=== PATIENT | male | born 1980 | race Two or more races ===

== ENCOUNTER → 2019-03-02 | Outpatient (CLI) | payer MEDICAID | END | disposition home or self-care (01) | LOC: Rad HDHVI 11:00 | PROVIDERS: ATTEND Internal Medicine Cardiovascular Disease | DX: I07.1 Rheumatic tricuspid insufficiency (principal); R00.2 Palpitations; I25.10 Atherosclerotic heart disease of native coronary artery without angina pectoris | CPT/HCPCS: 93306 ==

== ENCOUNTER 2019-03-29 11:51 | Emergency (ER) | payer MEDICAID ==
[~2019-03-29] VITALS: Ht 188 cm; Wt 140.6 kg
[2019-03-29 13:34] VITALS: BP 154/90
[2019-03-29 14:57] LABS: Basophils # (auto) 0 uL; Eosinophils # (auto) 0 uL; Eosinophils % (auto) 0.6 % (0.0-7.0); Lymphocytes # (auto) 0.8 uL; Monocytes # (auto) 0.4 uL; Nucleated Red Blood Cells % 0.3 %
[2019-03-29 15:00] LABS: Basophils % (auto) 0.4 % (0.0-2.0); Hematocrit 49.6 % (41.0-53.0); Hemoglobin 16.4 g/dL (13.5-17.5); Lymphocytes % (auto) 17.6 % (10.0-50.0); Mean Corpuscular Hemoglobin 25.6 pg (28.0-32.0); Mean Corpuscular Hgb Conc. 33.1 g/dL (32.0-36.0); Mean Corpuscular Volume 77.3 fL (80.0-100.0); Monocytes % (auto) 8.1 % (0.0-12.0); Neutrophils # (auto) 3.5 uL; Neutrophils % (auto) 73.3 % (37.0-80.0); Platelet Count (auto) 198 10^3/uL (140-450); Red Blood Cells 6.41 10^6/uL (4.5-5.90); Red Cell Distribution Width 15.8 % (11.8-14.3); White Blood Cell 4.8 10^3/uL (4.4-10.8)
[2019-03-29 15:05] LABS: Alcohol, Urine < 3.0 mg/dL (0-5); Amphetamine Screen, Urine NEGATIVE (NEGATIVE); Barbiturate Scree,Urine NEGATIVE (NEGATIVE); Benzodiazephine Screen, Urine NEGATIVE (NEGATIVE); Cannabinoid Screen, Urine NEGATIVE (NEGATIVE); Cocaine Screen, Urine NEGATIVE (NEGATIVE); Opiate Scree,Urine NEGATIVE (NEGATIVE); Phencyclidine Screen, Urine NEGATIVE (NEGATIVE)
[2019-03-29 15:14] LABS: Urine Bacteria FEW /hpf (None Seen); Urine Blood Negative /uL (Negative); Urine Specific Gravity 1.015 (1.001-1.035); Urine WBC 1 /hpf (0 - 3)
[2019-03-29 15:18] LABS: Albumin 3.8 g/dL (3.4-5.0); Anion Gap 7 (5-15); BUN/Creatinine Ratio 9.7; Blood Urea Nitrogen 12 mg/dL (7-18); Calcium 9.2 mg/dL (8.5-10.1); Carbon Dioxide 26 mmol/L (21-32); Chloride 110 mmol/L (98-107); GFR African American 85 mL/min; GFR Non-African American 70 mL/min; Glucose 91 mg/dL (74-106); Potassium 4.4 mmol/L (3.5-5.1); Sodium 143 mmol/L (136-145)
[2019-03-29 15:24] LABS: Alanine Aminotransferase 48 U/L (16-61); Alkaline Phosphatase 88 U/L (45-117); Aspartate Aminotransferase 21 U/L (15-37); Bilirubin, Total 0.3 mg/dL (0.2-1.0); Total Protein 7.7 g/dL (6.4-8.2)
== END 2019-03-29 15:40 | disposition home or self-care (01) ==
LOC: ER 11:51
DX: R00.2 Palpitations (principal); M79.10 Myalgia, unspecified site; R07.89 Other chest pain
CPT/HCPCS: 36415; 71046; 80053; 80307; 81001; 84484; 85025; 93005

== ENCOUNTER → 2019-04-13 | Outpatient (CLI) | payer MEDICAID ==
[~2019-04-13] MED LIST: ASP81EC PO; ATOR1TAB PO; BENA20TA14 PO; CHOL100029 PO; DIPH2.5T73 PO; FLUT0.05 NAS; METF-370 PO; OMEP20TA PO
[2019-04-13 09:58] VITALS: BP 150/93
[2019-04-13 10:08] VITALS: BP 152/86
--- NOTE | 2019-04-13 10:08 | NUR ---
Pre-Op Discharge Summary: See e-MAR for any medications given for this visit. Pre-op orders received and carried out per MD of EKG, LABS and chest xrays. Patient given a copy of EKG with instructions to go to [facility] out patient for further follow up care. NOTES EKG BY AMADOR AMBRIZ AND RESULTS REVIEWED BY JEREMIAS DEGROOT.
[2019-04-13 12:07] LABS: Basophils # (auto) 0 uL; Eosinophils # (auto) 0.1 uL; Eosinophils % (auto) 1.4 % (0.0-7.0); Hemoglobin 15.2 g/dL (13.5-17.5); Lymphocytes # (auto) 0.8 uL; Monocytes # (auto) 0.6 uL; Nucleated Red Blood Cells % 0.2 %
[2019-04-13 12:10] LABS: Basophils % (auto) 0.5 % (0.0-2.0); Hematocrit 45.8 % (41.0-53.0); Lymphocytes % (auto) 18.5 % (10.0-50.0); Mean Corpuscular Hemoglobin 25.8 pg (28.0-32.0); Mean Corpuscular Hgb Conc. 33.3 g/dL (32.0-36.0); Mean Corpuscular Volume 77.5 fL (80.0-100.0); Monocytes % (auto) 12.7 % (0.0-12.0); Neutrophils % (auto) 66.9 % (37.0-80.0); Platelet Count (auto) 188 10^3/uL (140-450); Red Cell Distribution Width 15.6 % (11.8-14.3); White Blood Cell 4.4 10^3/uL (4.4-10.8)
[2019-04-13 12:15] LABS: Calcium 9.2 mg/dL (8.5-10.1); Potassium 4.4 mmol/L (3.5-5.1)
[2019-04-13 12:17] LABS: BUN/Creatinine Ratio 14.2
[2019-04-13 12:19] LABS: INR 1.02 (0.9-1.15); Partial Thromboplastin Time 26.2 sec (23.64-32.05)
== END | disposition home or self-care (01) ==
LOC: Rad HDHVI 09:41
PROVIDERS: ATTEND Internal Medicine
DX: Z01.818 Encounter for other preprocedural examination (principal); J84.10 Pulmonary fibrosis, unspecified; D64.9 Anemia, unspecified; R79.1 Abnormal coagulation profile; I10 Essential (primary) hypertension
CPT/HCPCS: 36415; 71046; 80048; 85025; 85610; 85730; 93005; G0463

== ENCOUNTER 2019-04-18 07:57 | Day surgery (SDC) | payer MEDICAID ==
[~2019-04-18] VITALS: Ht 190.5 cm; Wt 136.1 kg
[2019-04-18] MEDS ORDERED: IOHEXOL 350 MG/ML 100ML IJ ONE ×4 (08:28→10:00)
[2019-04-18] MEDS ORDERED: LIDOCAINE 2%HCL (LOCAL ANESTH.) INJ 20ML MDV ONE (08:28)
[2019-04-18] MEDS ORDERED: ATOR1TAB PO (08:38)
[2019-04-18] MEDS ORDERED: FLUT0.05 NAS (08:38)
[2019-04-18] MEDS ORDERED: ASP81EC PO (08:42)
[2019-04-18] MEDS ORDERED: CHOL100029 PO (08:42)
[2019-04-18] MEDS ORDERED: METF-370 PO (08:42)
[2019-04-18] MEDS ORDERED: DIPH2.5T73 PO (08:42)
[2019-04-18] MEDS ORDERED: BENA20TA14 PO (08:42)
[2019-04-18] MEDS ORDERED: ANGIOMAX 250 MG VIAL IV ONE (08:42)
[2019-04-18] MEDS ORDERED: OMEP20TA PO (08:42)
[2019-04-18] MEDS ORDERED: fentaNYL CITRATE 100 MCG/2 ML VL ONE (08:43)
[2019-04-18] MEDS ORDERED: MIDAZOLAM HCL 1MG/1ML-2 ML VIAL ONE (08:43)
[2019-04-18] MEDS ORDERED: SODIUM CHL 0.9% 0 ML ONE (08:43)
[2019-04-18] MEDS ORDERED: HEPARIN SODIUM (PORCINE) 5000 UNITS/ML 1ML VIAL ONE (08:50)
[2019-04-18] MEDS ORDERED: VERAPAMIL 2.5MG/ML INJ 2ML VIAL IV ONE (08:50)
== END 2019-04-18 12:20 | disposition home or self-care (01) ==
LOC: CATH 07:57
PROVIDERS: ATTEND Internal Medicine
DX: R94.39 Abnormal result of other cardiovascular function study (principal); R07.89 Other chest pain; I10 Essential (primary) hypertension; E78.5 Hyperlipidemia, unspecified; Z79.84 Long term (current) use of oral hypoglycemic drugs; Z79.899 Other long term (current) drug therapy
CPT/HCPCS: 93458; C1769; C1887; C1894; J1644; J2250; J3010; J7030; Q9967; 99152

== ENCOUNTER → 2019-07-02 | Outpatient (CLI) | payer MEDICAID | END | disposition home or self-care (01) | LOC: Rad HDHVI 13:48 | PROVIDERS: ATTEND Internal Medicine | DX: I34.0 Nonrheumatic mitral (valve) insufficiency (principal); I11.0 Hypertensive heart disease with heart failure; I50.9 Heart failure, unspecified | CPT/HCPCS: 93306 ==

== ENCOUNTER → 2020-12-10 | Outpatient (CLI) | payer MEDICAID ==
[~2020-12-10] MED LIST changes: -ASP81EC PO; +ASPI-394 PO; +ATOR-47 PO; -ATOR1TAB PO
== END | disposition home or self-care (01) ==
LOC: Rad HDHVI 07:52
PROVIDERS: ATTEND Internal Medicine
DX: I07.1 Rheumatic tricuspid insufficiency (principal); I11.0 Hypertensive heart disease with heart failure; R07.9 Chest pain, unspecified
CPT/HCPCS: 93306

== ENCOUNTER 2021-03-04 06:06 | Day surgery (SDC) | payer MEDICAID ==
[~2021-03-04] VITALS: Ht 185.4 cm; Wt 133.8 kg
[2021-03-04] MEDS ORDERED: LIDOCAINE 2%HCL (LOCAL ANESTH.) INJ 20ML MDV ONE (07:40)
[2021-03-04] MEDS ORDERED: IODIXANOL 320MG/ML 100ML BTL IV ONE (07:40)
[2021-03-04] MEDS ORDERED: fentaNYL CITRATE 100 MCG/2 ML VL ONE (07:46)
[2021-03-04] MEDS ORDERED: ANGIOMAX 250 MG VIAL IV ONE (07:46)
[2021-03-04] MEDS ORDERED: MIDAZOLAM HCL 2MG/2ML 2ml VIAL (1mg/ml) ONE (07:47)
[2021-03-04] MEDS ORDERED: SODIUM CHL 0.9% 0 ML ONE (07:47)
[2021-03-04] MEDS ORDERED: HEPARIN SODIUM (PORCINE) 5000 UNITS/ML 1ML VIAL ONE (08:22)
[2021-03-04] MEDS ORDERED: VERAPAMIL 2.5MG/ML INJ 2ML VIAL IV ONE (08:22)
== END 2021-03-04 12:00 | disposition home or self-care (01) ==
LOC: CATH 06:06
PROVIDERS: ATTEND Internal Medicine
DX: I25.10 Atherosclerotic heart disease of native coronary artery without angina pectoris (principal); I10 Essential (primary) hypertension; E11.9 Type 2 diabetes mellitus without complications; E78.5 Hyperlipidemia, unspecified; Z20.822 Contact with and (suspected) exposure to COVID-19
CPT/HCPCS: 93458; C1769; C1887; C1894; J1644; J2250; J3010; J7030; Q9967; U0003; 99152; 99153

== ENCOUNTER → 2021-03-25 | Outpatient (CLI) | payer MEDICAID | END | disposition home or self-care (01) | LOC: Rad HDHVI 10:06 | PROVIDERS: ATTEND Internal Medicine | DX: I20.9 Angina pectoris, unspecified (principal); E78.5 Hyperlipidemia, unspecified | CPT/HCPCS: 93925 ==

== ENCOUNTER → 2022-08-05 | Outpatient (CLI) | payer MEDICAID ==
[~2022-08-05] MED LIST changes: +BENA-36 PO; -BENA20TA14 PO
== END | disposition home or self-care (01) ==
LOC: Rad HDHVI 14:56
PROVIDERS: ATTEND Internal Medicine Cardiovascular Disease
DX: I08.3 Combined rheumatic disorders of mitral, aortic and tricuspid valves (principal); E78.5 Hyperlipidemia, unspecified; I11.9 Hypertensive heart disease without heart failure
CPT/HCPCS: 93306

== ENCOUNTER → 2023-08-31 | Outpatient (CLI) | payer MEDICAID ==
[~2023-08-31] VITALS: Ht 188 cm; Wt 136.5 kg
== END | disposition home or self-care (01) ==
LOC: Rad HDHVI 12:56
PROVIDERS: ATTEND Internal Medicine Cardiovascular Disease
DX: I11.0 Hypertensive heart disease with heart failure (principal); I50.43 Acute on chronic combined systolic (congestive) and diastolic (congestive) heart failure; R07.89 Other chest pain; E11.21 Type 2 diabetes mellitus with diabetic nephropathy; I42.1 Obstructive hypertrophic cardiomyopathy; G47.30 Sleep apnea, unspecified; E78.00 Pure hypercholesterolemia, unspecified; I51.7 Cardiomegaly; Z79.899 Other long term (current) drug therapy
CPT/HCPCS: 78472; 96374; 96375; A9505

== ENCOUNTER → 2023-09-05 | Outpatient (CLI) | payer MEDICAID | END | disposition home or self-care (01) | LOC: Rad HDHVI 10:57 | PROVIDERS: ATTEND Internal Medicine Cardiovascular Disease | DX: R06.02 Shortness of breath (principal) | CPT/HCPCS: 71046 ==

== ENCOUNTER → 2024-01-06 | Outpatient (CLI) | payer MEDICAID ==
[~2024-01-06] MED LIST changes: +BACL10TA PO; +ESOM40CA39 PO; +IVAB1.7T PO; +MAGN100T9 PO; +METO-289 PO; +METO5TAB5 PO; +ROSU20TA14 PO; +SACU1TAB PO; +SUCR1TAB PO; +TRIA75TA55 PO; +VERI2.5T PO
== END | disposition home or self-care (01) ==
LOC: Rad HDHVI 12:49
PROVIDERS: ATTEND Internal Medicine Cardiovascular Disease
DX: R00.2 Palpitations (principal); R55 Syncope and collapse
CPT/HCPCS: 93306

== ENCOUNTER → 2024-05-11 | Outpatient (CLI) | payer MEDICAID ==
[~2024-05-11] MED LIST changes: +IOHEXOL 350 MG/ML 100ML IJ ONE
[2024-05-11 12:58] VITALS: BP 145/99; PULSE 110; RESP 20; O2SAT 98
[2024-05-11 13:15] VITALS: BP 151/89; PULSE 111; RESP 20; O2SAT 98
--- NOTE | 2024-05-11 13:51 | DVH ---
Procedure: CT CT ANGIO CHEST CONTRAST Reason for study/Clinical History: SOB CHEST PAIN Comparison Study: None available at time of dictation. Exam Date: 05/11/2024 01:01 PM Radiation Dose Information: CT Dose: CTDI volume is 40.34 mGy. Dose-length product is 1837.67 mGy*cm Contrast: Type of contrast: Omnipaque Contrast inject: 100 mL Contrast wasted:0 TECHNIQUE: After the uneventful administration of intravenous contrast intravenously, CT imaging was performed through the chest. Coronal and sagittal reformations were performed by the technologist. Sagittal and coronal MIP images were reconstructed of the pulmonary circulation. FINDINGS: Lower Neck: Visualized portions of the thyroid gland are unremarkable. Aorta and Vasculature: Normal caliber of thoracic aorta. Lymph Nodes: No enlarged intrathoracic lymph nodes. Mediastinum: Heart size is normal. There is no pericardial effusion. The esophagus is unremarkable. Lungs: Ground-glass infiltrate and areas of scarring or atelectasis in the right posterior costophren ic angle.. No suspicious pulmonary nodule or mass. Musculoskeletal: No acute osseous abnormality. Upper abdomen: Limited portions of the upper abdomen are unremarkable. Hepatic steatosis. IMPRESSION: 1. Hepatic steatosis 2. No findings of pulmonary artery hypertension or pulmonary emboli. 3. Ground-glass infiltrate and areas of scarring or atelectasis in the posterior right costophrenic a ngle. All CT scans at this medical facility are performed using dose modulation techniques as appropriate t o a performed exam including the following: Automated exposure control was utilized; adjustment of th e MA and/or KV according to patient size; and use of iterative reconstruction technique. HS:Y
== END | disposition home or self-care (01) ==
LOC: Rad HDHVI 12:33
PROVIDERS: ATTEND Internal Medicine Cardiovascular Disease
DX: J98.4 Other disorders of lung (principal); K76.0 Fatty (change of) liver, not elsewhere classified; R06.02 Shortness of breath; R07.9 Chest pain, unspecified
CPT/HCPCS: 71275; G0463; Q9967

== ENCOUNTER → 2024-05-14 | Outpatient (CLI) | payer MEDICAID ==
[~2024-05-14] VITALS: Ht 188 cm; Wt 136.5 kg
[~2024-05-14] MED LIST changes: +ADENOSINE 115 MG in GIVE UN-DILUTED 0 ML IV ONE; +ADENOSINE 90 MG/30 ML INJ IV ONE; -IOHEXOL 350 MG/ML 100ML IJ ONE
== END | disposition home or self-care (01) ==
LOC: Rad HDHVI 12:23
PROVIDERS: ATTEND Internal Medicine Cardiovascular Disease
DX: I49.3 Ventricular premature depolarization (principal); I49.1 Atrial premature depolarization; R00.0 Tachycardia, unspecified; E11.21 Type 2 diabetes mellitus with diabetic nephropathy; R07.89 Other chest pain; E78.00 Pure hypercholesterolemia, unspecified; I11.0 Hypertensive heart disease with heart failure; I50.43 Acute on chronic combined systolic (congestive) and diastolic (congestive) heart failure; R55 Syncope and collapse; R00.2 Palpitations; Z95.810 Presence of automatic (implantable) cardiac defibrillator; R06.02 Shortness of breath; I42.0 Dilated cardiomyopathy; Z82.49 Family history of ischemic heart disease and other diseases of the circulatory system
CPT/HCPCS: 78452; 93005; A9500; J0153; 96374; 96375

== ENCOUNTER → 2024-07-16 | Outpatient (CLI) | payer MEDICAID ==
[~2024-07-16] MED LIST changes: -ADENOSINE 115 MG in GIVE UN-DILUTED 0 ML IV ONE; -ADENOSINE 90 MG/30 ML INJ IV ONE
[2024-07-16 09:00] VITALS: BP 143/91; PULSE 77; RESP 16; O2SAT 97
[2024-07-16 09:20] VITALS: BP 145/87; PULSE 80; RESP 16
--- NOTE | 2024-07-16 12:12 | DVH ---
EXAM: XY CHEST TWO VIEWS ROUTINE CLINICAL HISTORY: pain COMPARISON: XY CHEST TWO VIEWS ROUTINE on DOS: 09/05/23, CHEST TWO VIEWS ROUTINE on DOS: 04/13/19, CHES T TWO VIEWS ROUTINE on DOS: 03/29/19 TECHNIQUE: Frontal and lateral view of the chest was obtained FINDINGS: Lines and Tubes: Cardiac pacemaker projects over left chest wall. Lungs: No focal consolidation. Pleura: No effusion. No pneumothorax. Cardiomediastinal contours: Unremarkable Bones: No acute osseous abnormality. IMPRESSION: No acute cardiopulmonary disease.
== END | disposition home or self-care (01) ==
LOC: Rad HDHVI 08:52
PROVIDERS: ATTEND Internal Medicine Cardiovascular Disease
DX: Z01.818 Encounter for other preprocedural examination (principal); R94.31 Abnormal electrocardiogram [ECG] [EKG]; I25.5 Ischemic cardiomyopathy; R07.89 Other chest pain
CPT/HCPCS: 71046; 93005; G0463

== ENCOUNTER → 2024-07-16 | Outpatient (CLI) | payer MEDICAID ==
[~2024-07-16] VITALS: Ht 188 cm; Wt 145.6 kg
[2024-07-16 11:29] LABS: Potassium 4.1 mmol/L (3.5-5.1); Sodium 144 mmol/L (136-145)
[2024-07-16 11:30] LABS: Anion Gap 9 (5-15); Calcium 10.4 mg/dL (8.7-10.4); Carbon Dioxide 28 mmol/L (20-31)
[2024-07-16 11:32] LABS: Chloride 107 mmol/L (98-107)
[2024-07-16 11:35] LABS: BUN/Creatinine Ratio 10.1 (10.0-20.0); Blood Urea Nitrogen 13 mg/dL (9-23); Glucose 96 mg/dL (74-106)
[2024-07-16 11:38] LABS: Basophils # (auto) 0 10 ^3/uL (0-0.2); Eosinophils # (auto) 0.1 10 ^3/uL (0-0.8); Eosinophils % (auto) 1.7 % (0.0-7.0); Hematocrit 52.2 % (41.0-53.0); Hemoglobin 16.7 g/dL (13.5-17.5); Lymphocytes % (auto) 33.4 % (10.0-50.0); Mean Corpuscular Hemoglobin 23.8 pg (28.0-32.0); Mean Corpuscular Hgb Conc. 32.1 g/dL (32.0-36.0); Mean Corpuscular Volume 74.3 fL (80.0-100.0); Monocytes # (auto) 0.3 10 ^3/uL (0-1.3); Monocytes % (auto) 10.3 % (0.0-12.0); Neutrophils # (auto) 1.6 10 ^3/uL (1.6-8.6); Neutrophils % (auto) 53.6 % (37.0-80.0); Nucleated Red Blood Cells % 1.3 %; Platelet Count (auto) 191 10^3/uL (140-450); Red Blood Cells 7.02 10^6/uL (4.5-5.90); Red Cell Distribution Width 16.7 % (11.8-14.3)
[2024-07-16 11:41] LABS: INR 1.04 (0.9-1.15); Partial Thromboplastin Time 25.8 SEC (24.5-34.5)
== END | disposition home or self-care (01) ==
LOC: LAB 11:01 → EDSTATUS 07-19 16:34
PROVIDERS: ATTEND Internal Medicine Cardiovascular Disease
DX: Z01.812 Encounter for preprocedural laboratory examination (principal); R07.9 Chest pain, unspecified
CPT/HCPCS: 36415; 80048; 85025; 85610; 85730

== ENCOUNTER 2024-11-10 11:28 | Inpatient (IN) | payer MEDICAID ==
[~2024-11-10] VITALS: Ht 188 cm; Wt 136.8 kg
[~2024-11-10 11:28] MED LIST changes: -ASPI-394 PO; -BENA-36 PO; -CHOL100029 PO; -DIPH2.5T73 PO; -FLUT0.05 NAS; -OMEP20TA PO; -VERI2.5T PO
--- NOTE | 2024-11-10 11:41 | ED.PDOC ---
SOB-HPI HPI Comments This is a 44 year old male presenting to the ED with chief complaint of cough. Patient reports that he has been experiencing a cough with associated fever for the past 2 days. Patient denies any SOB, chest pain, dizziness, chills, headache, or hemoptysis. Chief Complaint: Cough Time Seen by MD: 11:40 Reviewed notes: Nurses Notes, Medications, Allergies Information Source: Patient Mode of Arrival: Ambulatory Severity: Mild Timing: Days Duration: Since onset Context: At Rest PE Risk Factors: None History of: CHF Prehospital treatment: None Modifying Factors: Nothing Associated Signs and Symptoms: Fever If cough with SOB: Non-Productive Past Medical History PAST MEDICAL HISTORY: CHF, CKF, DM, HTN, Liver Surgical History: Pacemaker Family History Family History: Reviewed,noncontributory to illness Social History Smoker: Non-Smoker Alcohol: Denies ETOH Use Drugs: Denies Drug Use Lives In: Home Constitutional: reports: fever; denies: chills, diaphoresis, fatigue, malaise, sweats, weakness, others EENTM: denies: blurred vision, double vision, ear bleeding, ear discharge, ear drainage, ear pain, ear ringing, eye pain, eye redness, hearing loss, mouth pain, mouth swelling, nasal discharge, nose bleeding, nose congestion, nose pain, photophobia, tearing, throat pain, throat swelling, voice changes, others Respiratory: reports: cough; denies: hemoptysis, orthopnea, SOB at rest, shortness of breath, SOB with excertion, stridor, wheezing, others Cardiovascular: denies: chest pain, dizzy spells, diaphoresis, Dyspnea on exertion, edema, irregular heart beat, left arm pain, lightheadedness, palpitations, PND, syncope, others Gastrointestinal: denies: abdomen distended, abdominal pain, blood streaked bowels, constipated, diarrhea, dysphagia, difficulty swallowing, hematemesis, melena, nausea, poor appetite, poor fluid intake, rectal bleeding, rectal pain, vomiting, others Genitourinary: denies: burning, dysuria, flank pain, frequency, hematuria, incontinence, penile discharge, penile sore, pain, testicle pain, testicle swelling, urgency, others Neurological: denies: dizziness, fainting, headache, left sided numbness, left sided weakness, numbness, paresthesia, pre-existing deficit, right sided numbness, right sided weakness, seizure, speech problems, tingling, tremors, weakness, others Musculoskeletal: denies: back pain, gout, joint pain, joint swelling, muscle pain, muscle stiffness, neck pain, others Integumetry: denies: bruises, change in color, change in hair/nails, dryness, laceration, lesions, lumps, rash, wounds, others Allergic/Immunocompromised: denies: Difficulty Healing, Frequent Infections, Hives, Itching, others Hematologic/Lymphatic: denies: anemia, blood clots, easy bleeding, easy bruising, swollen glands, others Endocrine: denies: excessive hunger, excessive sweating, excessive thirst, excessive urination, flushing, intolerance to cold, intolerance to heat, unexplained weight gain, unexplained weight loss, others Psychiatric: denies: anxiety, bipolar disorder, depression, hopeless, panic disorder, schizophrenia, sleepless, suicidal, others All Other Systems: Reviewed and Negative Physical Exam General Appearance: Moderate Distress, Obese HEENT: Normal ENT Inspection, PERRL/EOMI, Pharynx Normal, TMs Normal Neck: Full Range of Motion, Non-Tender, Normal, Normal Inspection Respiratory: Chest Non-Tender, Decreased Breath Sounds, Expiration, Inspiration, Lungs Clear, No Accessory Muscle Use, No Respiratory Distress Cardiovascular: No Edema, No JVD, No Murmur, No Gallop, Normal Peripheral Pulses, Regular Rate/Rhythm Breast Exam: Deferred Gastrointestinal: No Organomegaly, Non Tender, No Pulsatile Mass, Normal Bowel Sounds, Soft, Tenderness, Other (Obesity) Genitalia: Deferred Pelvic: Deferred Rectal: Deferred Extremities: No calf tenderness, Normal capillary refill, Normal inspection, Normal range of motion, Non-tender, No pedal edema Musculoskeletal : Apperance: Normal Neurologic: Alert, vest tailor II-XII nml as Tested, No Motor Deficits, Normal Affect, Normal Mood, No Sensory Deficits Cerebellar Function: Normal Reflexes: Normal Skin: Dry, Normal Color, Warm Peripheral Pulses: 1+ carotid (R), 1+ carotid (L) Lymphatic: No Adenopathy Was a procedure done? Was a procedure done?: No Differential Dx Differential Diagnosis: Bronchitis, CHF, COPD, Hypertension, Pneumonia, URI X-Ray, Labs, Meds, VS Vital Signs Date Time Temp Pulse Resp B/P (MAP) Pulse Ox O2 Delivery O2 Flow Rate FiO2 11/10/24 13:31 125 11/10/24 12:48 128/87 11/10/24 12:35 94 Nasal Cannula* 1 24 11/10/24 12:23 98.2 120 20 128/87 (101) 90 98.2 11/10/24 12:23 120 20 90 Room Air* 0 21 11/10/24 12:16 20 90 Room Air* 0 21 11/10/24 11:30 98.4 128 18 139/83 97 98.4 Lab Test 11/10/24 12:14 Range/Units White Blood Count 5.1 4.4-10.8 10^3/uL Red Blood Count 6.44 H 4.5-5.90 10^6/uL Hemoglobin 16.5 13.5-17.5 g/dL Hematocrit 49.9 41.0-53.0 % Mean Corpuscular Volume 77.5 L 80.0-100.0 fL Mean Corpuscular Hemoglobin 25.6 L 28.0-32.0 pg Mean Corpuscular Hemoglobin Concent 33.0 32.0-36.0 g/dL Red Cell Distribution Width 15.7 H 11.8-14.3 % Platelet Count 197 140-450 10^3/uL Mean Platelet Volume 7.9 6.9-10.8 fL Neutrophils (%) (Auto) 73.1 37.0-80.0 % Lymphocytes (%) (Auto) 16.3 10.0-50.0 % Monocytes (%) (Auto) 8.7 0.0-12.0 % Eosinophils (%) (Auto) 1.0 0.0-7.0 % Basophils (%) (Auto) 0.9 0.0-2.0 % Neutrophils # (Auto) 3.7 1.6-8.6 10 ^3/uL Lymphocytes # (Auto) 0.8 0.4-5.4 10 ^3/uL Monocytes # (Auto) 0.4 0-1.3 10 ^3/uL Eosinophils # (Auto) 0.1 0-0.8 10 ^3/uL Basophils # (Auto) 0 0-0.2 10 ^3/uL Nucleated Red Blood Cells 0.2 % Sodium Level 139 136-145 mmol/L Potassium Level 3.4 L 3.5-5.1 mmol/L Chloride Level 105 98-107 mmol/L Carbon Dioxide Level 25 20-31 mmol/L Anion Gap 9 5-15 Blood Urea Nitrogen 9 9-23 mg/dL Creatinine 1.55 H 0.700-1.30 mg/dL Glomerular Filtration Rate Calc 57 >90 mL/min BUN/Creatinine Ratio 5.8 L 10.0-20.0 Serum Glucose 124 H 74-106 mg/dL Calcium Level 8.7 8.7-10.4 mg/dL Magnesium Level 1.9 1.6-2.6 mg/dL Troponin I High Sensitivity 45 </=54 ng/L B-Type Natriuretic Peptide 157.28 0-100 pg/mL Current Medications Medications (Trade) Dose Ordered Sig/Neha Route Start Time Stop Time Status Last Admin Albuterol (Ventolin Medneb) 5 mg ONCE ONCE NEB 11/10/24 11:45 11/10/24 11:46 DC 11/10/24 12:16 Ipratropium [place] (Atrovent Medneb) 0.5 mg ONCE ONCE NEB 11/10/24 11:45 11/10/24 11:46 DC 11/10/24 12:16 Furosemide (Lasix Tablet) 20 mg ONCE ONCE PO 11/10/24 12:30 11/10/24 12:31 DC 11/10/24 12:48 Spironolactone (Aldactone) 25 mg ONCE ONCE PO 11/10/24 12:30 11/10/24 12:31 DC 11/10/24 12:48 [place] [id number] Ph: [phone] DIAGNOSTIC IMAGING Diagnostic Imaging Report : [id number] Signed PATIENT: MORIAH DIETRICH ACCT: [id number] UNIT: [id number] : 1980 LOC: ER ROOM / BED: / AGE / SEX: 44 / M ADM STATUS: REG ER SERVICE 1143 ORDERING PHYSICIAN: JAYDE HAND MD PROCEDURE(s): CXR2 - CHEST TWO VIEWS ROUTINE REASON: chf cough ORDER NUMBER(s): [id number], ACCESSION NUMBER(s): [id number] CLINICAL HISTORY: chf cough TECHNIQUE: Chest 2 views of the chest were obtained. COMPARISON: XY CHEST TWO VIEWS ROUTINE on DOS: 07/16/24, XY CHEST TWO VIEWS ROUTINE on DOS: 09/05/23, CT CHEST/AB/PL W CON- IV ONLY on DOS: 06/26/21, CT HEART/ CALCIUM SCORE on DOS: 01/19/21, CHEST TWO VIEWS ROUTINE on DOS: 04/13/19 FINDINGS: There is a single lead left chest patient device. The heart size is normal with pulmonary vascular congestion. No dense consolidation is seen. There is no pleural effusion. IMPRESSION: Pulmonary vascular congestion. ATED BY: MIGUEL EDDY MD DICTATED DATE/TIME: 11/10/24 121 SIGNED BY: MIGUEL EDDY MD SIGNED DATE/TIME: 11/10/241211 CC: X-Ray, Labs, Meds, VS Comment Course in the emergency department eventful While in the emergency department the patient oxygen dropped in his pulse ox was 88 and he was put on oxygen CBC is normal BNP is 157 The chest x-ray shows congestive heart failure Troponin 45 Potassium 3.4 Magnesium 1.9 EKG pending Patient will be admitted for further care Time of 1ST Reevaluation: 12:00 Reevaluation 1ST: Unchanged Patient Education/Counseling: Diagnosis, Treatment Family Education/Counseling: No Family Present SEPSIS Sepsis Screen Date sepsis recognized/suspect: Nov 10, 2024 Time Sepsis recognized/suspect: 1132 Recent Procedure: No On Antibiotic Therapy: No Respiratory Rate >20: No Heart Rate >90: No Temp<36 C (96.8 F) or >38.3 C: No SBP <90 or MAP <65 mmHG: No New Acute Mental Status Change: No Is the patient on CPAP, BIPAP,: No Physician Orders Chest Two Views Routine (11/10/24 11:43) Heplock Iv (11/10/24 11:43) Blood Pressure (11/10/24 11:43) Electrocardigram (11/10/24 11:43) Vital Signs Date Time Temp Pulse Resp B/P (MAP) Pulse Ox O2 Delivery O2 Flow Rate FiO2 11/10/24 13:31 125 11/10/24 12:48 128/87 11/10/24 12:35 94 Nasal Cannula* 1 24 11/10/24 12:23 98.2 120 20 128/87 (101) 90 98.2 11/10/24 12:23 120 20 90 Room Air* 0 21 11/10/24 12:16 20 90 Room Air* 0 21 11/10/24 11:30 98.4 128 18 139/83 97 98.4 Laboratory Tests Test 11/10/24 12:14 White Blood Count 5.1 10^3/uL (4.4-10.8) Medications Medications Dose Ordered Sig/Neha Route Start Time Stop Time Status Last Admin Dose Admin Albuterol 5 mg ONCE ONCE NEB 11/10/24 11:45 11/10/24 11:46 DC 11/10/24 12:16 Furosemide 20 mg ONCE ONCE PO 11/10/24 12:30 11/10/24 12:31 DC 11/10/24 12:48 Ipratropium [place] 0.5 mg ONCE ONCE NEB 11/10/24 11:45 11/10/24 11:46 DC 11/10/24 12:16 Spironolactone 25 mg ONCE ONCE PO 11/10/24 12:30 11/10/24 12:31 DC 11/10/24 12:48 Departure 1 Departure Time of Disposition: 14:26 Impression: Primary Impression: Pulmonary vascular congestion Additional Impression: Hypoxemia requiring supplemental oxygen Disposition: ADMITTED INPATIENT [facility] Condition: Fair Critical Care Note Critical Care Time?: No Stability Stability form required: Yes Unstable for transfer: Telemetry monitoring (Telemetry monitoring required), Requires medication Heart Score Heart Score: Heart Score Response (Comments) Value History Slightly Suspicious 0 EKG Repolarization Disturb 1 Age <45 0 Risk Factors >3 or Hx ASHD 2 Troponin Normal limit 0 Total 3 I personally scribed for JAYDE HAND MD ([email or web address]) on 11/10/24 at 11:41. Electronically submitted by Vikas Ruff ([email or web address]). I personally scribed for JAYDE HAND MD ([email or web address]) on 11/10/24 at 12:57. Electronically submitted by Vikas Ruff ([email or web address]). JAYDE HAND MD Nov 10, 2024 11:41
--- NOTE | 2024-11-10 12:14 | DVH ---
CLINICAL HISTORY: chf cough TECHNIQUE: Chest 2 views of the chest were obtained. COMPARISON: XY CHEST TWO VIEWS ROUTINE on DOS: 07/16/24, XY CHEST TWO VIEWS ROUTINE on DOS: 09/05/23, CT CHEST/AB/PL W CON- IV ONLY on DOS: 06/26/21, CT HEART/ CALCIUM SCORE on DOS: 01/19/21, CHEST TWO VIEWS ROUTINE on DOS: 04/13/19 FINDINGS: There is a single lead left chest patient device. The heart size is normal with pulmonary vascular co ngestion. No dense consolidation is seen. There is no pleural effusion. IMPRESSION: Pulmonary vascular congestion.
[2024-11-10] MEDS: IPRATROPIUM BROM 0.5 MG/2.5ML INH SOL NEB ONE (12:16)
[2024-11-10] MEDS: ALBUTEROL SULF 2.5 MG/0.5ML(0.5%) NEB SOLN NEB ONE (12:16)
[2024-11-10 12:23] VITALS: PULSE 120; RESP 20; O2SAT 90
[2024-11-10 12:39] LABS: Chloride 105 mmol/L (98-107); Sodium 139 mmol/L (136-145)
[2024-11-10 12:40] LABS: Anion Gap 9 (5-15); Carbon Dioxide 25 mmol/L (20-31); Hematocrit 49.9 % (41.0-53.0); Hemoglobin 16.5 g/dL (13.5-17.5); Mean Corpuscular Hemoglobin 25.6 pg (28.0-32.0); Mean Corpuscular Volume 77.5 fL (80.0-100.0); Nucleated Red Blood Cells % 0.2 %
[2024-11-10 12:46] LABS: BUN/Creatinine Ratio 5.8 (10.0-20.0); Blood Urea Nitrogen 9 mg/dL (9-23); Magnesium 1.9 mg/dL (1.6-2.6)
[2024-11-10 12:48] LABS: Calcium 8.7 mg/dL (8.7-10.4); Glucose 124 mg/dL (74-106); Potassium 3.4 mmol/L (3.5-5.1)
[2024-11-10] MEDS: FUROSEMIDE 20 MG TAB PO ONE (12:48)
[2024-11-10] MEDS: SPIRONOLACTONE 25 MG TAB PO ONE (12:48)
--- NOTE | 2024-11-10 14:46 | DVHHP2 ---
Admitting Diagnosis: Shortness of breaths History of Present Illness This is a 44 year old male presenting to the ED with chief complaint of cough. Patient reports that he has been experiencing a cough with associated fever for the past 2 days. Patient denies any SOB, chest pain, dizziness, chills, headache, or hemoptysis. PAST MEDICAL HISTORY: CHF, CKF, DM, HTN, Liver Surgical History: Pacemaker Family History Family History: Reviewed,noncontributory to illness Social History Smoker: Non-Smoker Alcohol: Denies ETOH Use Drugs: Denies Drug Use Lives In: Home Allergies: Coded Allergies: NO KNOWN ALLERGIES (Unverified , 07/16/24) Home Meds Reported Medications Baclofen (Baclofen) 10 Mg Tab, 10 MG PO Q8HP PRN for MUSCLE SPASMS, MG 07/16/24 Sucralfate (Sucralfate) 1 Gm Tab, 1 GM PO QID for GERD, GM 07/16/24 Metolazone (Metolazone) 5 Mg Tab, 5 MG PO DAILY for B/P/EDEMA, TAB 10/19/23 Metoprolol Succinate (Metoprolol Succinate Er) 50 Mg Tab, 100 MG PO DAILY for 30 Days, MG 10/19/23 Sacubitril-Valsartan (Entresto 24-26 mg) 1 Tab Tab, 1 TAB PO, TAB 10/19/23 Magnesium Bisglycinate (Mag Glycinate) 100 Mg Tab, 500 MG PO BID, TAB 10/19/23 Triamterene & Hydrochlorothiaz (Maxzide) 1 Tab Tab, 1 TAB PO DAILY, #30 TAB 5 Refills 10/19/23 Esomeprazole Magnesium Trihydr (Nexium) 40 Mg Cap, 1 CAP PO DAILY for gerd, #30 CAP 5 Refills 10/19/23 Rosuvastatin Calcium (Crestor) 20 Mg Tab, 1 TAB PO DAILY, #30 TAB 5 Refills 10/19/23 Ivabradine Hydrochloride (Corlanor) 5 Mg Tab, 5 MG PO BID for HF, TAB 10/19/23 Metformin Hydrochloride (Metformin Hcl) 500 Mg Tab, 500 MG PO BID for 30 Days, MG 04/18/19 Atorvastatin Calcium (ATORVASTATIN CALCIUM) 80 Mg Tab, 1 TAB PO DAILY for HIGH CHOLESTEROL, #30 TAB 5 Refills 04/18/19 Vital Signs Vital Signs Date Time Temp Pulse Resp B/P (MAP) Pulse Ox O2 Delivery O2 Flow Rate FiO2 11/10/24 13:31 125 11/10/24 12:48 128/87 11/10/24 12:35 94 Nasal Cannula* 1 24 11/10/24 12:23 98.2 20 98.2 Physical Exam Generally 45 years old male, morbidly obese, sitting on chair. On nasal cannula HEENT-atraumatic, normocephalic Heart-regular rate and rhythm Lungs bilateral lower lung crackles Abdomen soft nontender nondistended Musculoskeletal-no plus one pedal edema Neuro-AO x3, no focal deficits SEPSIS Sepsis Screen Date sepsis recognized/suspect: Nov 10, 2024 Time Sepsis recognized/suspect: 1132 Recent Procedure: No On Antibiotic Therapy: No Respiratory Rate >20: No Heart Rate >90: No Temp<36 C (96.8 F) or >38.3 C: No SBP <90 or MAP <65 mmHG: No New Acute Mental Status Change: No Is the patient on CPAP, BIPAP,: No Physician Orders Chest Two Views Routine (11/10/24 11:43) Heplock Iv (11/10/24 11:43) Blood Pressure (11/10/24 11:43) Electrocardigram (11/10/24 11:43) Furosemide Injection (Lasix Injection) (11/10/24 18:00) Daily Weight (11/10/24 15:32) Maintain Fluid Restrictions QSHIFT (11/10/24 15:32) Strict I & O QSHIFT (11/10/24 15:32) Echo 2d Mode Cardiac Dop (11/10/24 15:32) Kidney (11/10/24 15:32) *[facility] (11/10/24 15:32) Admit (11/10/24 15:35) Code Status (11/10/24 15:35) Vital Signs .PER UNIT PROTOCOL (11/10/24 15:35) Review Orders With Adm. (11/10/24 15:35) Encourage Activity As Tolerate (11/10/24 15:35) Sodium Chloride Lock (Saline Lock Ns) (11/10/24 22:00) Docusate Sodium Capsule (Colace Capsule) (11/10/24 15:45) Acetaminophen Tablet (Tylenol Tablet) (11/10/24 15:45) Notify Md Of Changes From Base (11/10/24 15:35) Advance Directive (11/10/24 15:35) Patient Condition (11/10/24 15:35) Allergies (11/10/24 15:35) Hydrocodone-Acet 5/325mg Tab ([place] 5/32 (11/10/24 15:45) Ondansetron Hcl (Zofran) (11/10/24 15:45) Cardiac Diet-2gna,Lofat,Lochol (11/10/24 Dinner) Vital Signs Date Time Temp Pulse Resp B/P (MAP) Pulse Ox O2 Delivery O2 Flow Rate FiO2 11/10/24 13:31 125 11/10/24 12:48 128/87 11/10/24 12:35 94 Nasal Cannula* 1 24 11/10/24 12:23 98.2 120 20 128/87 (101) 90 98.2 11/10/24 12:23 120 20 90 Room Air* 0 21 11/10/24 12:16 20 90 Room Air* 0 21 11/10/24 11:30 98.4 128 18 139/83 97 98.4 Laboratory Tests Test 11/10/24 12:14 White Blood Count 5.1 10^3/uL (4.4-10.8) Medications Medications Dose Ordered Sig/Neha Route Start Time Stop Time Status Last Admin Dose Admin Albuterol 5 mg ONCE ONCE NEB 11/10/24 11:45 11/10/24 11:46 DC 11/10/24 12:16 Furosemide 20 mg ONCE ONCE PO 11/10/24 12:30 11/10/24 12:31 DC 11/10/24 12:48 Ipratropium [place] 0.5 mg ONCE ONCE NEB 11/10/24 11:45 11/10/24 11:46 DC 11/10/24 12:16 Spironolactone 25 mg ONCE ONCE PO 11/10/24 12:30 11/10/24 12:31 DC 11/10/24 12:48 Results Labs Test 11/10/24 12:14 Range/Units White Blood Count 5.1 4.4-10.8 10^3/uL Red Blood Count 6.44 H 4.5-5.90 10^6/uL Hemoglobin 16.5 13.5-17.5 g/dL Hematocrit 49.9 41.0-53.0 % Mean Corpuscular Volume 77.5 L 80.0-100.0 fL Mean Corpuscular Hemoglobin 25.6 L 28.0-32.0 pg Mean Corpuscular Hemoglobin Concent 33.0 32.0-36.0 g/dL Red Cell Distribution Width 15.7 H 11.8-14.3 % Platelet Count 197 140-450 10^3/uL Mean Platelet Volume 7.9 6.9-10.8 fL Neutrophils (%) (Auto) 73.1 37.0-80.0 % Lymphocytes (%) (Auto) 16.3 10.0-50.0 % Monocytes (%) (Auto) 8.7 0.0-12.0 % Eosinophils (%) (Auto) 1.0 0.0-7.0 % Basophils (%) (Auto) 0.9 0.0-2.0 % Neutrophils # (Auto) 3.7 1.6-8.6 10 ^3/uL Lymphocytes # (Auto) 0.8 0.4-5.4 10 ^3/uL Monocytes # (Auto) 0.4 0-1.3 10 ^3/uL Eosinophils # (Auto) 0.1 0-0.8 10 ^3/uL Basophils # (Auto) 0 0-0.2 10 ^3/uL Nucleated Red Blood Cells 0.2 % Sodium Level 139 136-145 mmol/L Potassium Level 3.4 L 3.5-5.1 mmol/L Chloride Level 105 98-107 mmol/L Carbon Dioxide Level 25 20-31 mmol/L Anion Gap 9 5-15 Blood Urea Nitrogen 9 9-23 mg/dL Creatinine 1.55 H 0.700-1.30 mg/dL Glomerular Filtration Rate Calc 57 >90 mL/min BUN/Creatinine Ratio 5.8 L 10.0-20.0 Serum Glucose 124 H 74-106 mg/dL Calcium Level 8.7 8.7-10.4 mg/dL Magnesium Level 1.9 1.6-2.6 mg/dL Troponin I High Sensitivity 45 </=54 ng/L B-Type Natriuretic Peptide 157.28 0-100 pg/mL Primary Diagnosis Acute hypoxic respiratory failure suspect CHF exacerbation and possible pneumonia Plan Start ceftriaxone, azithromycin empiric antibiotics. Check blood culture Check CRP, for NEVILLE IV Lasix 40 mg b.i.d. Check echo of the heart Daily weight Strict in and out Fluid restriction Check urine drug studies Ultrasound renal for NEVIL[place] Cardiac diet Full code Heparin for DVT prophylaxis No GI prophylaxis needed Plan discussed with: Patient Problems List: (1) Pulmonary vascular congestion Status: Acute (2) Hypoxemia requiring supplemental oxygen Status: Acute Date of Service: Nov 10, 2024 Billing Provider: KATE CAZARES MD Common Visit Codes: [id number] INP/OBS CARE (HIGH) KATE CAZARES MD Nov 10, 2024 14:46
[2024-11-10] MEDS ORDERED: DOCUSATE SOD 100 MG CAP PO PRN (15:45)
[2024-11-10] MEDS ORDERED: ACETAMINOPHEN 325 MG TAB PO PRN (15:45)
[2024-11-10] MEDS ORDERED: ONDANSETRON HCL 4 MG/2 ML VIAL IV PRN (15:45)
--- NOTE | 2024-11-10 16:09 | DVH ---
RENAL ULTRASOUND CLINICAL HISTORY: NEVILLE on CKD TECHNIQUE: Multiple grayscale ultrasound images were obtained through the kidneys and urinary bladder . COMPARISON: None FINDINGS: Right kidney: Measures 12.39 cm. No hydronephrosis. Left kidney: Measures 10.93 cm. No hydronephrosis. Urinary bladder: Unremarkable. Prevoid volume 729 mL Incidental increased echogenicity of the liver. IMPRESSION: 1. Normal size kidneys without evidence of hydronephrosis. 2. Hepatic steatosis.
[2024-11-10] MEDS: POTASSIUM CHL 20 Meq TABLET PO ONE (16:26)
[2024-11-10] MEDS: HYDROcodone-ACET 5/325MG TAB PO PRN (16:27)
[2024-11-10] MEDS: FUROSEMIDE 40 MG/4 ML VIAL IV SCH (16:28)
[2024-11-10 18:20] VITALS: BP 136/86; PULSE 129; RESP 20; TEMP 98.1; O2SAT 96
--- NOTE | 2024-11-10 19:00 | ECG ---
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
[2024-11-10] MEDS: SODIUM CHLOR 0.9% PF (SALINE LOCK) 10ML VIAL/SYR IV SCH (23:07)
[2024-11-11 00:53] VITALS: BP 150/91; PULSE 109; RESP 20; TEMP 98.3; O2SAT 95
[2024-11-11 05:16] LABS: Hematocrit 46.3 % (41.0-53.0); Hemoglobin 15.7 g/dL (13.5-17.5); Mean Corpuscular Hemoglobin 26.0 pg (28.0-32.0); Mean Corpuscular Volume 76.9 fL (80.0-100.0); Nucleated Red Blood Cells % 0.3 %
[2024-11-11 05:17] LABS: Alanine Aminotransferase 24 U/L (7-40); Alkaline Phosphatase 97 U/L (46-116)
[2024-11-11 05:18] LABS: Albumin 4.1 g/dL (3.2-4.8); Anion Gap 9 (5-15); BUN/Creatinine Ratio 5.8 (10.0-20.0); Bilirubin, Total 0.7 mg/dL (0.2-1.0); Blood Urea Nitrogen 9 mg/dL (9-23); Calcium 9.0 mg/dL (8.7-10.4); Carbon Dioxide 26 mmol/L (20-31); Chloride 107 mmol/L (98-107); Magnesium 2.2 mg/dL (1.6-2.6); Potassium 4.1 mmol/L (3.5-5.1); Sodium 142 mmol/L (136-145); Total Protein 6.5 g/dL (5.7-8.2)
[2024-11-11 05:24] LABS: Glucose 109 mg/dL (74-106)
[2024-11-11 08:25] VITALS: BP 116/77; PULSE 109; RESP 24; TEMP 97.8; O2SAT 95
[2024-11-11] MEDS: AZITHROMYCIN 500MG/ 250ML 250 ML IV SCH (09:53)
[2024-11-11 12:00] VITALS: BP 115/53; PULSE 105; RESP 22; TEMP 97.9; O2SAT 94
--- NOTE | 2024-11-11 12:02 | DVHPN2 ---
Reviewed: Care Plan, H&P, Labs, Medications, Previous Orders, Radiology Changes from previous H/P or p: No Changes Objective Vitals Vital Signs Date Time Temp Pulse Resp B/P (MAP) Pulse Ox O2 Delivery O2 Flow Rate FiO2 11/11/24 08: 97.8 109 24 116/77 (90) 95 97.8 11/10/24 12:35 Nasal Cannula* 1 24 Intake/Output Intake and Output 11/11/24 07:00 Intake Total 200 ml Output Total 300 ml Balance -100 ml Intake Oral 200 ml Output Urine Total 300 ml Medications Current Medications Medications Dose Ordered Sig/Neha Route Start Time Stop Time Status Last Admin Dose Admin Furosemide 40 mg BIDD IV 11/10/24 18:00 11/11/24 06:33 40 MG Sodium Chloride 10 ml Q8HR IV 11/10/24 22:00 11/11/24 06:25 10 ML Docusate Sodium 100 mg BIDPRN PRN PO 11/10/24 15:45 Acetaminophen 650 mg Q6HP PRN PO 11/10/24 15:45 Acetaminophen/ Hydrocodone Bitart 1 tab Q4HP PRN PO 11/10/24 15:45 11/10/24 16:27 1 TAB Ondansetron HCl 4 mg Q4HP PRN IV 11/10/24 15:45 Ceftriaxone Sodium 50 ml @ 100 mls/hr DAILY@09 IV 11/11/24 09:00 11/11/24 08:35 100 MLS/HR Azithromycin 250 ml @ 125 mls/hr DAILY IV 11/11/24 10:00 11/11/24 09:53 125 MLS/HR Laboratory Results Laboratory Tests 11/11/24 03:40 Chemistry Test 11/10/24 12:14 11/11/24 03:40 Calcium Level 8.7 mg/dL (8.7-10.4) 9.0 mg/dL (8.7-10.4) Magnesium Level 1.9 mg/dL (1.6-2.6) 2.2 mg/dL (1.6-2.6) Albumin 4.1 g/dL (3.2-4.8) Total Protein 6.5 g/dL (5.7-8.2) Cardiac Markers Test 11/10/24 12:14 B-Type Natriuretic Peptide 157.28 pg/mL (0-100) LFT Test 11/11/24 03:40 Alanine Aminotransferase (ALT) 24 U/L (7-40) Alkaline Phosphatase 97 U/L (46-116) Aspartate Amino Transferase (AST) 28 U/L (13-40) Total Bilirubin 0.7 mg/dL (0.2-1.0) Labs and/or images reviewed: Labs reviewed by me, Image(s) reviewed by me Assessment/Plan Assessment/Plan Acute hypoxic respiratory failure: Oxygen by nasal cannula Acute community-acquired pneumonia Gram-positive versus Gram-negative: Rocephin azithromycin Acute CHF exacerbation: Lasix Diabetes Hypertension Liver disease Chronic kidney disease Time spent 55 minutes Patient is full code Advanced care planning time 20 mts Plan discussed with: Patient My Orders Orders - DEAN BARRAZA MD Procedure Category Date Status Time Covid19 Antigen Christy LAB 11/11/24 Logged Rapid Influenza A&B LAB 11/11/24 Logged 11:59 Date of Service: Nov 11, 2024 Billing Provider: DEAN BARRAZA MD Common Visit Codes: 98501-[id number] INP/OBS CARE(HIGH) Secondary Visit Codes: [id number] CARE PLAN 30 MINUTES DEAN BARRAZA MD Nov 11, 2024 12:02
--- NOTE | 2024-11-11 15:33 | DVHSR ---
APPROVED REPORT EXAM: Two-dimensional and M-mode echocardiogram with Doppler and color Doppler. Blood Pressure: 150/91 mmHg INDICATION SOB likely dur to CHF exacerbation Surgery/Intervention AICD RISK FACTORS Height: 72, Weight: 301 DIMENSIONS LVDd6.1 (3.8-5.7cm)LA (2D)4.9 (1.9-4.0cm)Aortic Root4.0 (2.0-3.7cm) LVDs5.5 (2.5-4.0cm)LA (MM) (1.9-4.0cm)Aortic Cusp Exc1.9 (1.5-2.0cm) EF (%) 20.0 (55-70%)Rt. Atrium3.2 (1.9-4.0cm)Asc. Aorta cm Mitral Valve MitralMitral Stenosis E wave0.68m/sMV Mean GR.mmHg A wavem/sMV Peak GR.61mmHg E/A ratio0.02D MVAcm2 Aortic Valve Aortic ValveAortic Stenosis V10.80m/Lyle Mean GR.4mmHg V21.24m/Lyle Peak GR.6mmHg LVOT Diameter2.7 (1.8-2.4cm)Doppler AVA3.69cm2 Pulmonic Valve V20.91m/s Tricuspid Valve TR Velocity3.11m/s [id number] Conclusion Sinus rhythm. Left ventricular enlargement. Left atrial enlargement. Mild mitral annular calcification. Normal excursion of the mitral leaflets. Mild leaflet thickening of the posterior mitral leaflet. The aortic, the tricuspid and pulmonic valves are normal. Left ventricular systolic performance is diminished. EF is approximately 20% with severe global hypo kinesis. Right ventricular function is moderately diminished. Severe tricuspid regurgitation with a right ventricular systolic pressure of 50 mmHg consistent with pulmonary hypertension. No pericardial effusion masses or vegetations discernible.
[2024-11-11 16:00] VITALS: BP 140/84; PULSE 111; RESP 22; TEMP 99.5; O2SAT 92
--- NOTE | 2024-11-11 16:05 | DVHINCON2 ---
Date of service: Nov 11, 2024 Referring Physician Nils Henderson MD Reason for Consultation ELEVATED CREATININE History of Present Illness This is a 44-year-old male with history of Chronic kidney disease stage IIIA secondary to cardiorenal syndrome presenting to the emergency room because of cough which has been going on for the past few days. Chest x-ray with evidence of pulmonary venous congestion. Nephrology consulted because of the elevated creatinine. Patient is known to me from the outpatient office setting Past Medical History Chronic kidney disease stage IIIA HFrEF Hypertension Past Surgical History Status post AICD placement Family History: Diabetes mellitus G8 MOTHER FH: congestive heart failure G8 FATHER Family History No family history of kidney disease Social History No active history of smoking, alcohol or drug abuse Allergies: Coded Allergies: NO KNOWN ALLERGIES (Unverified , 07/16/24) Home Meds Reported Medications Baclofen (Baclofen) 10 Mg Tab, 10 MG PO Q8HP PRN for MUSCLE SPASMS, MG 07/16/24 Sucralfate (Sucralfate) 1 Gm Tab, 1 GM PO QID for GERD, GM 07/16/24 Metolazone (Metolazone) 5 Mg Tab, 5 MG PO DAILY for B/P/EDEMA, TAB 10/19/23 Metoprolol Succinate (Metoprolol Succinate Er) 50 Mg Tab, 100 MG PO DAILY for 30 Days, MG 10/19/23 Sacubitril-Valsartan (Entresto 24-26 mg) 1 Tab Tab, 1 TAB PO, TAB 10/19/23 Magnesium Bisglycinate (Mag Glycinate) 100 Mg Tab, 500 MG PO BID, TAB 10/19/23 Triamterene & Hydrochlorothiaz (Maxzide) 1 Tab Tab, 1 TAB PO DAILY, #30 TAB 5 Refills 10/19/23 Esomeprazole Magnesium Trihydr (Nexium) 40 Mg Cap, 1 CAP PO DAILY for gerd, #30 CAP 5 Refills 10/19/23 Rosuvastatin Calcium (Crestor) 20 Mg Tab, 1 TAB PO DAILY, #30 TAB 5 Refills 10/19/23 Ivabradine Hydrochloride (Corlanor) 5 Mg Tab, 5 MG PO BID for HF, TAB 10/19/23 Metformin Hydrochloride (Metformin Hcl) 500 Mg Tab, 500 MG PO BID for 30 Days, MG 04/18/19 Atorvastatin Calcium (ATORVASTATIN CALCIUM) 80 Mg Tab, 1 TAB PO DAILY for HIGH CHOLESTEROL, #30 TAB 5 Refills 04/18/19 Current Medications Current Medications Medications (Trade) Dose Ordered Sig/Neha Route PRN Reason Start Time Stop Time Status Last Admin Furosemide (Lasix Injection) 40 mg BIDD IV 11/10/24 18:00 11/11/24 06:33 Sodium Chloride (Saline Lock Ns) 10 ml Q8HR IV 11/10/24 22:00 11/11/24 06:25 Ceftriaxone Sodium 50 ml @ 100 mls/hr DAILY@09 IV 11/11/24 09:00 11/11/24 08:35 Azithromycin 250 ml @ 125 mls/hr DAILY IV 11/11/24 10:00 11/11/24 09:53 Review of Systems 12 point review of system negative except as stated in the HPI Vital Signs Vital Signs Date Time Temp Pulse Resp B/P (MAP) Pulse Ox O2 Delivery O2 Flow Rate FiO2 11/11/24 12:00 97.9 105 22 115/53 (73) 94 97.9 11/10/24 12:35 Nasal Cannula* 1 24 Physical Exam Awake alert oriented x3 HEENT: Normocephalic, no JVD Lungs: Bilateral good air entry CVS: S1, S2 regular rate rhythm Abdomen: Soft, bowel sounds present [employer]: No focal deficits Extremities: Trace edema Labs/Diagnostic Data Labs Test 11/11/24 15:22 11/11/24 03:40 11/10/24 12:14 Range/Units White Blood Count 4.5 4.4-10.8 10^3/uL Red Blood Count 6.02 H 4.5-5.90 10^6/uL Hemoglobin 15.7 13.5-17.5 g/dL Hematocrit 46.3 41.0-53.0 % Mean Corpuscular Volume 76.9 L 80.0-100.0 fL Mean Corpuscular Hemoglobin 26.0 L 28.0-32.0 pg Mean Corpuscular Hemoglobin Concent 33.8 32.0-36.0 g/dL Red Cell Distribution Width 15.5 H 11.8-14.3 % Platelet Count 196 140-450 10^3/uL Mean Platelet Volume 8.2 6.9-10.8 fL Neutrophils (%) (Auto) 65.7 37.0-80.0 % Lymphocytes (%) (Auto) 21.8 10.0-50.0 % Monocytes (%) (Auto) 10.2 0.0-12.0 % Eosinophils (%) (Auto) 1.3 0.0-7.0 % Basophils (%) (Auto) 1.0 0.0-2.0 % Neutrophils # (Auto) 3.0 1.6-8.6 10 ^3/uL Lymphocytes # (Auto) 1.0 0.4-5.4 10 ^3/uL Monocytes # (Auto) 0.5 0-1.3 10 ^3/uL Eosinophils # (Auto) 0.1 0-0.8 10 ^3/uL Basophils # (Auto) 0 0-0.2 10 ^3/uL Nucleated Red Blood Cells 0.3 % Sodium Level 142 136-145 mmol/L Potassium Level 4.1 3.5-5.1 mmol/L Chloride Level 107 98-107 mmol/L Carbon Dioxide Level 26 20-31 mmol/L Anion Gap 9 5-15 Blood Urea Nitrogen 9 9-23 mg/dL Creatinine 1.54 H 0.700-1.30 mg/dL Glomerular Filtration Rate Calc 57 >90 mL/min BUN/Creatinine Ratio 5.8 L 10.0-20.0 Serum Glucose 109 H 74-106 mg/dL Calcium Level 9.0 8.7-10.4 mg/dL Magnesium Level 2.2 1.6-2.6 mg/dL Total Bilirubin 0.7 0.2-1.0 mg/dL Aspartate Amino Transferase (AST) 28 13-40 U/L Alanine Aminotransferase (ALT) 24 7-40 U/L Alkaline Phosphatase 97 46-116 U/L Total Protein 6.5 5.7-8.2 g/dL Albumin 4.1 3.2-4.8 g/dL Troponin I High Sensitivity 45 </=54 ng/L C-Reactive Protein High Sensitivity 2.76 H <1.0 mg/dL B-Type Natriuretic Peptide 157.28 0-100 pg/mL Assessment Chronic kidney disease stage 3 secondary to cardiorenal syndrome Probable pneumonia HFrEF History of AICD placement Hepatic steatosis Plan/Recommendation Continue with IV diuresis. Continue with IV antibiotics. Renal ultrasound within normal limits. We will follow up on the echocardiogram results. Plan discussed with: Patient VIKI TEJEDA MD Nov 11, 2024 16:05
[2024-11-11 16:24] LABS: COVID19 ANTIGEN SOFIA FIA NEGATIVE (NEGATIVE)
[2024-11-11 23:00] VITALS: BP 119/91; PULSE 110; TEMP 98.4; O2SAT 99
[2024-11-12 01:00] VITALS: BP_SYST 125; BP_SYST 99; BP_DIAS 71; BP_DIAS 80; PULSE 109; PULSE 89; RESP 20; TEMP 97; TEMP 97.6; O2SAT 95; O2SAT 96
[2024-11-12 05:00] VITALS: BP 99/71; PULSE 89; RESP 20; TEMP 97.6; O2SAT 96
[2024-11-12 07:49] LABS: Hematocrit 48.6 % (41.0-53.0); Hemoglobin 16.1 g/dL (13.5-17.5); Mean Corpuscular Hemoglobin 25.8 pg (28.0-32.0); Mean Corpuscular Volume 77.7 fL (80.0-100.0); Nucleated Red Blood Cells % 0.8 %
[2024-11-12 08:00] VITALS: PULSE 96
[2024-11-12 08:07] LABS: Alanine Aminotransferase 26 U/L (7-40); Albumin 4.2 g/dL (3.2-4.8); Alkaline Phosphatase 93 U/L (46-116); Anion Gap 12 (5-15); BUN/Creatinine Ratio 9.5 (10.0-20.0); Bilirubin, Total 0.6 mg/dL (0.2-1.0); Blood Urea Nitrogen 14 mg/dL (9-23); Calcium 9.2 mg/dL (8.7-10.4); Carbon Dioxide 27 mmol/L (20-31); Chloride 104 mmol/L (98-107); Glucose 98 mg/dL (74-106); Magnesium 2.2 mg/dL (1.6-2.6); Potassium 3.6 mmol/L (3.5-5.1); Sodium 143 mmol/L (136-145); Total Protein 6.9 g/dL (5.7-8.2)
--- NOTE | 2024-11-12 12:06 | DVHDS2 ---
Discharge Summary Date of Admission Nov 10, 2024 at 15:35 Date of Discharge: Nov 12, 2024 Admitting Diagnosis Shortness of breath Wounds: None Labs/Diagnostic Data: Laboratory Results Test 11/12/24 06:16 11/11/24 15:22 11/11/24 03:00 11/10/24 12:14 White Blood Count 4.6 10^3/uL (4.4-10.8) Red Blood Count 6.25 10^6/uL (4.5-5.90) Hemoglobin 16.1 g/dL (13.5-17.5) Hematocrit 48.6 % (41.0-53.0) Mean Corpuscular Volume 77.7 fL (80.0-100.0) Mean Corpuscular Hemoglobin 25.8 pg (28.0-32.0) Mean Corpuscular Hemoglobin Concent 33.2 g/dL (32.0-36.0) Red Cell Distribution Width 15.5 % (11.8-14.3) Platelet Count 212 10^3/uL (140-450) Mean Platelet Volume 8.4 fL (6.9-10.8) Neutrophils (%) (Auto) 66.4 % (37.0-80.0) Lymphocytes (%) (Auto) 20.5 % (10.0-50.0) Monocytes (%) (Auto) 10.7 % (0.0-12.0) Eosinophils (%) (Auto) 1.6 % (0.0-7.0) Basophils (%) (Auto) 0.8 % (0.0-2.0) Neutrophils # (Auto) 3.0 10 ^3/uL (1.6-8.6) Lymphocytes # (Auto) 0.9 10 ^3/uL (0.4-5.4) Monocytes # (Auto) 0.5 10 ^3/uL (0-1.3) Eosinophils # (Auto) 0.1 10 ^3/uL (0-0.8) Basophils # (Auto) 0 10 ^3/uL (0-0.2) Nucleated Red Blood Cells 0.8 % Sodium Level 143 mmol/L (136-145) Potassium Level 3.6 mmol/L (3.5-5.1) Chloride Level 104 mmol/L (98-107) Carbon Dioxide Level 27 mmol/L (20-31) Anion Gap 12 (5-15) Blood Urea Nitrogen 14 mg/dL (9-23) Creatinine 1.47 mg/dL (0.700-1.30) Glomerular Filtration Rate Calc 61 mL/min (>90) BUN/Creatinine Ratio 9.5 (10.0-20.0) Serum Glucose 98 mg/dL (74-106) Calcium Level 9.2 mg/dL (8.7-10.4) Magnesium Level 2.2 mg/dL (1.6-2.6) Total Bilirubin 0.6 mg/dL (0.2-1.0) Aspartate Amino Transferase (AST) 37 U/L (13-40) Alanine Aminotransferase (ALT) 26 U/L (7-40) Alkaline Phosphatase 93 U/L (46-116) Total Protein 6.9 g/dL (5.7-8.2) Albumin 4.2 g/dL (3.2-4.8) Influenza Type A Antigen Negative (Negative) Influenza Type B Antigen Negative (Negative) SARS-CoV-2 Antigen (Rapid) Negative (NEGATIVE) Troponin I High Sensitivity 38 ng/L (</=54) C-Reactive Protein High Sensitivity 2.76 mg/dL (<1.0) B-Type Natriuretic Peptide 157.28 pg/mL (0-100) Other Laboratory Tests 11/12/24 06:16 Brief Hx & Hospital Course: 62-year-old male with a history of hypertension diabetes congestive heart failure came in for shortness of breaths found to have community-acquired pneumonia treated with Rocephin azithromycin Lasix was given for CHF exacerbation: Echo 20 percent ejection fraction. Chronic kidney disease stage 3 seen by Nephrology. while awaiting further stabilization patient decided to leave AMA and left AMA consequences and complications including possible explained to the patient and he verbalized understanding Consults/Reason for consult Nephrology Dr. Yuan Operations or Procedures None Condition at Discharge: Fair Final Diagnosis/Problems List Acute hypoxic respiratory failure: Oxygen by nasal cannula Acute community-acquired pneumonia Gram-positive versus Gram-negative: Rocephin azithromycin Acute CHF exacerbation: Lasix Diabetes Hypertension Liver disease Chronic kidney disease Discharge Disposition: AMA Discharge Instruct/Medications Diet comment: Not applicable Patient left AMA Activity comment: Not applicable Patient left AMA Follow Up/Referral: Not applicable Patient left AMA Medications: Not applicable Patient left AMA Scheduled Atorvastatin Calcium (Atorvastatin Calcium), 1 TAB PO DAILY, (Reported) Esomeprazole Magnesium Trihydr (Nexium), 1 CAP PO DAILY, (Reported) Ivabradine Hydrochloride (Corlanor), 5 MG PO BID, (Reported) Magnesium Bisglycinate (Mag Glycinate), 500 MG PO BID, (Reported) Metformin Hydrochloride (Metformin Hcl), 500 MG PO BID, (Reported) Metolazone (Metolazone), 5 MG PO DAILY, (Reported) Metoprolol Succinate (Metoprolol Succinate Er), 100 MG PO DAILY, (Reported) Rosuvastatin Calcium (Crestor), 1 TAB PO DAILY, (Reported) Sucralfate (Sucralfate), 1 GM PO QID, (Reported) Triamterene & Hydrochlorothiaz (Maxzide), 1 TAB PO DAILY, (Reported) Scheduled PRN Baclofen (Baclofen), 10 MG PO Q8HP PRN for MUSCLE SPASMS, (Reported) Miscellaneous Medications Sacubitril-Valsartan (Entresto 24-26 mg), 1 TAB PO, (Reported) 39 (Time Taken for discharge summary 39 minutes) Discharge Statement: "Patient was advised to return to the ER or call 911 if any headaches, dizziness, shortness of breath, chest pain, abdominal pain, bleeding, fevers, or worsening of medical condition. Patient was counseled about treatment plan, medications, possible side effects, patientverbalized understanding. All questions were answered to the best of my ability. This discharge took greater then 30 minutes in planning, reviewing documentation, counseling the patient, and discussing with other team members." ASSESSMENT ASSESSMENT Hospital Course Left AMA Assessment Date of Service: Nov 12, 2024 Billing Provider: DEAN BARRAZA MD Common Visit Codes: 54906-PCV/OBS DISCH DAY >30min DEAN BARRAZA MD Nov 12, 2024 12:06
[2024-11-12 13:36] LABS: Hepatitis B Surface Antigen Negative (Negative)
[2024-11-12 13:43] LABS: Hepatitis C Antibody Negative (Negative)
--- NOTE | 2024-11-14 11:52 | ECG ---
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
== END 2024-11-12 08:05 | disposition left against medical advice (07) | DRG 133 ==
LOC: ER 11:28 → OVERFLOW 15:35 → WEST WING 11-11 22:46
PROVIDERS: ADMIT Internal Medicine; ATTEND Internal Medicine
DX: J96.01 Acute respiratory failure with hypoxia (principal); I50.21 Acute systolic (congestive) heart failure; J15.69 Pneumonia due to other Gram-negative bacteria; E11.22 Type 2 diabetes mellitus with diabetic chronic kidney disease; I13.0 Hypertensive heart and chronic kidney disease with heart failure and stage 1 through stage 4 chronic kidney disease, or unspecified chronic kidney disease; J15.9 Unspecified bacterial pneumonia; Z53.29 Procedure and treatment not carried out because of patient's decision for other reasons; K76.0 Fatty (change of) liver, not elsewhere classified; N18.31 Chronic kidney disease, stage 3a; Z79.84 Long term (current) use of oral hypoglycemic drugs; Z79.899 Other long term (current) drug therapy; Z95.810 Presence of automatic (implantable) cardiac defibrillator; Z83.3 Family history of diabetes mellitus; Z82.49 Family history of ischemic heart disease and other diseases of the circulatory system
CPT/HCPCS: 36415; 71046; 76775; 80048; 80053; 83735; 83880; 84484; 85025; 86141; 86803; 87340; 87426; 87804; 93005; 93306; 94640; G0378

== ENCOUNTER → 2024-11-16 | Outpatient (CLI) | payer MEDICAID ==
[2024-11-16 10:59] LABS: Urine Protein, UAD 1+ (Negative)
[2024-11-16 11:00] LABS: Hematocrit 48.9 % (41.0-53.0); Hemoglobin 16.1 g/dL (13.5-17.5); Mean Corpuscular Hemoglobin 25.5 pg (28.0-32.0); Mean Corpuscular Volume 77.3 fL (80.0-100.0); Nucleated Red Blood Cells % 0.1 %
[2024-11-16 11:34] LABS: Alanine Aminotransferase 33 U/L (7-40); Albumin 4.1 g/dL (3.2-4.8); Alkaline Phosphatase 101 U/L (46-116); Anion Gap 8 (5-15); BUN/Creatinine Ratio 6.5 (10.0-20.0); Blood Urea Nitrogen 9 mg/dL (9-23); Calcium 8.8 mg/dL (8.7-10.4); Carbon Dioxide 27 mmol/L (20-31); Sodium 144 mmol/L (136-145); Total Protein 6.6 g/dL (5.7-8.2); Triglycerides 122 mg/dL (< 150)
[2024-11-16 11:35] LABS: Bilirubin, Total 0.3 mg/dL (0.2-1.0); HDL Cholesterol 47 mg/dL (40-59)
[2024-11-16 11:36] LABS: Bilirubin, Direct < 0.1 mg/dL (<0.3); Chloride 109 mmol/L (98-107); Cholesterol 208 mg/dL (< 200); Glucose 108 mg/dL (74-106); Potassium 3.5 mmol/L (3.5-5.1)
== END | disposition home or self-care (01) ==
LOC: LAB 09:50
PROVIDERS: ATTEND Internal Medicine Cardiovascular Disease
DX: C61 Malignant neoplasm of prostate (principal); I11.0 Hypertensive heart disease with heart failure; I50.9 Heart failure, unspecified; E11.9 Type 2 diabetes mellitus without complications; Z11.9 Encounter for screening for infectious and parasitic diseases, unspecified; E55.9 Vitamin D deficiency, unspecified; N39.0 Urinary tract infection, site not specified; R00.2 Palpitations
CPT/HCPCS: 36415; 80048; 80061; 80076; 81003; 83036; 84153; 84403; 84443; 85025

== ENCOUNTER 2024-12-11 12:10 | Outpatient (CLI) | payer MEDICAID ==
--- NOTE | 2024-12-11 14:50 | DVHSR ---
APPROVED REPORT EXAM: Two-dimensional and M-mode echocardiogram with Doppler and color Doppler. Surgery/Intervention Pacemaker: RISK FACTORS Obesity: DIMENSIONS LVDd6.6 (3.8-5.7cm)LA (2D)4.2 (1.9-4.0cm)Aortic Root4.0 (2.0-3.7cm) LVDs6.2 (2.5-4.0cm)LA (MM) (1.9-4.0cm)Aortic Cusp Exc1.9 (1.5-2.0cm) EF (%) 20.0 (55-70%)Rt. Atrium4.3 (1.9-4.0cm)Asc. Aorta cm IVSd1.3 (0.7-1.1cm)RV (D) (1.8-2.4cm) PWd1.2 (0.7-1.1cm) Mitral Valve MitralMitral Stenosis E wave0.98m/sMV Mean GR.mmHg A wave0.51m/sMV Peak GR.mmHg E/A ratio1.92D MVAcm2 DECEL [id number] 1/2 Timems Aortic Valve Aortic ValveAortic Stenosis V10.54m/Lyle Mean GR.3mmHg V21.03m/Lyle Peak GR.4mmHg LVOT Diameter2.3 (1.8-2.4cm)Doppler AVA2.18cm2 Pulmonic Valve V20.77m/s Tricuspid Valve TR Velocity3.08m/s [id number] LEFT VENTRICLE The left ventricle is enlarged. The Ejection Fraction is <25%. There is global hypokinesis of the left ventricle. RIGHT VENTRICLE The right ventricle is enlarged. There is a pacemaker lead in the right ventricle. ATRIA The left atrium is enlarged. The right atrium is enlarged. A pacemaker is seen in the right atrium. The interatrial septum is intact with no evidence for an atrial septal defect. MITRAL VALVE The mitral valve is normal in structure. Mitral regurgitation is mild to moderate. PULMONIC VALVE The pulmonic valve is not well visualized. TRICUSPID VALVE The tricuspid valve is grossly normal. There is mild to moderate tricuspid regurgitation. Right ventricular systolic pressure is 40-50 mmHg. AORTIC VALVE The aortic valve opens well. No aortic regurgitation is present. GREAT VESSELS The aortic root is normal size. PERICARDIAL EFFUSION There is no pericardial effusion. Other Information Technically limited study due to body habitus. Conclusion LVH MOD TR MOD MR EF <20% LVE LAE MELIDA
== END 2024-12-11 17:00 | disposition home or self-care (01) ==
LOC: Rad HDHVI 12:10
PROVIDERS: ATTEND Internal Medicine Cardiovascular Disease
DX: I08.1 Rheumatic disorders of both mitral and tricuspid valves (principal); Z95.0 Presence of cardiac pacemaker
CPT/HCPCS: 93306